=== PATIENT | male | born 1965 | race Caucasian/White ===

== ENCOUNTER 2022-05-04 03:59 | Emergency (ER) | payer BC, OTHER ==
[2022-05-04] MEDS ORDERED: DIPHTH,PERTUSS(ACELL),TET 0.5 ML DISP.SYRIN IM ONE ×2 (04:21→04:41)
[2022-05-04 04:31] VITALS: RESP 16; BMI 26.6
[2022-05-04 07:01] VITALS: BP 105/71; PULSE 69; TEMP 98.1
== END 2022-05-04 07:21 | disposition home or self-care (01) ==
LOC: JER 03:59
PROC: 0HQ1XZZ Repair Face Skin, External Approach (ICD-10-PCS; principal; 2022-05-04)
PROC: 3E0234Z Introduction of Serum, Toxoid and Vaccine into Muscle, Percutaneous Approach (ICD-10-PCS; 2022-05-04)
DX: S01.81XA Laceration without foreign body of other part of head, initial encounter (principal); W18.02XA Striking against glass with subsequent fall, initial encounter; Y93.01 Activity, walking, marching and hiking
CPT/HCPCS: 70450-TC; 70486-TC; 72125-TC; 73560-TC-RT-FY; 82962; 90715; 99285-25